=== PATIENT | male | born 1945 | race Caucasian/White ===

== ENCOUNTER → 2017-05-24 | Outpatient (CLI) | payer MEDICARE, OTHER ==
[~2017-05-24] MED LIST: HYDRALAZINE HCL25 MG PO
== END | disposition home or self-care (01) ==
LOC: RAD 00:19
DX: R05 Cough (principal); M79.89 Other specified soft tissue disorders; Z77.090 Contact with and (suspected) exposure to asbestos

== ENCOUNTER → 2021-04-01 | Outpatient (CLI) | payer MEDICARE, OTHER ==
[~2021-04-01] MED LIST changes: +KLOR-CON 88 ME1 PO; +LISINOPRIL20 MG PO; +NORCO 5-325 TA1 EACH PO; +TAMSULOSIN HCL0.4 MG PO
== END | disposition home or self-care (01) ==
LOC: RAD 09:41
PROVIDERS: ATTEND Internal Medicine
DX: M16.11 Unilateral primary osteoarthritis, right hip (principal); M47.817 Spondylosis without myelopathy or radiculopathy, lumbosacral region; M51.37 Other intervertebral disc degeneration, lumbosacral region